=== PATIENT | female | born 1980 | race Hispanic/Latino ===

== ENCOUNTER 2020-10-16 14:10 | Emergency (ER) | payer SELFPAY ==
[~2020-10-16] VITALS: Ht 165.1 cm; Wt 80.3 kg
[~2020-10-16 14:10] MED LIST: AMBIEN5 MG PO; EMBREL; LEVAQUIN500 MG PO; METOCLOPRAMIDE10 MG PO; METOPROLOL TART25 MG PO; NORCO 10-325 T1 EACH PO; PROTONIX40 MG/ML PO; XARELTO20 MG PO; ZOFRAN ODT4 MG PO
[2020-10-16] MEDS ORDERED: BUPIVACAINE HCL 0.5% 10ML MPF VIAL INJ ONE (14:30)
--- NOTE | 2020-10-16 14:47 | Emergency Department Note ---
History of Present Illnes History of Present Illness Chief Complaint: Extremity Trauma/Pain History of Present Illness This is a 40 year old female Chief Complaint Comment Patient in from home with complaints of swelling to the pointer and middle finger on her right hand. 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 Patient reports that she cut a hole in her fingers to try to reduce the swelling. Sensation intact. No acute distress noted. Historian: Patient Arrival Mode: Car Computer Publisher Required: No Onset (how long ago): day(s) Location: R index finger Quality: Swelling Radiation: Reports non-radiation Severity: moderate Onset quality: gradual Duration (how long): day(s) Timing of current episode: constant Progression: worsening Chronicity: new Context: Denies recent illness, Denies recent surgery Relieving factors: none Exacerbating factors: none Associated symptoms: Reports denies other symptoms Treatments prior to arrival: none Past Medical/Family History Physician Review I have reviewed the patient's past medical and family history. Any updates have been documented here. Past Medical History Recent Fever: No Clinical Suspicion of Infectio: No New/Unexplained Change in Ment: No Past Medical History: Anxiety Other Medical History: psoriatic arthritis fibromyalgia Past Surgical History: None Other Surgery: GASTRIC BYPASS 18 YRS AGO UTERINE ABLASION TUMMY TUCK LIPOSUCTION Other Last Tetanus: 2016 Review of Systems Review of Systems Constitutional: Reports no symptoms EENTM: Reports no symptoms Cardiovascular: Reports no symptoms Respiratory: Reports no symptoms Gastrointestinal: Reports no symptoms Genitourinary: Reports no symptoms Musculoskeletal: Reports as per HPI Integumentary: Reports no symptoms Neurological: Reports no symptoms Psychological: Reports no symptoms Endocrine: Reports no symptoms Hematological/Lymphatic: Reports no symptoms Physical Exam Related Data Allergies: Coded Allergies: No Known Allergies (Unverified , 02/03/17) Triage Vital Signs Vital Signs Date Time Temp Pulse Resp B/P (MAP) Pulse Ox O2 Delivery O2 Flow Rate FiO2 10/16/20 14:19 98.7 86 16 127/90 100 Room Air Vital signs reviewed: Yes Physical Exam CONSTITUTIONAL Constitutional: Present well-developed, Present well-nourished HENT HENT: Present normocephalic, Present atraumatic, Present oropharynx clear/moist, Present nose normal HENT L/R: Present left ext ear normal, Present right ext ear normal EYES Eyes: Reports PERRL, Reports conjunctivae normal NECK Neck: Present ROM normal PULMONARY Pulmonary: Present effort normal, Present breath sounds normal CARDIOVASCULAR Cardiovascular: Present regular rhythm, Present heart sounds normal, Present capillary refill normal, Present normal rate GASTROINTESTINAL Abdominal: Present soft, Present nontender, Present bowel sounds normal GENITOURINARY Genitourinary: Present exam deferred SKIN Skin: Present warm, Present dry MUSCULOSKELETAL Musculoskeletal: Present ROM normal, Present other (Swelling to R index DIP consistent with felon) NEUROLOGICAL Neurological: Present alert, Present oriented x 3, Present no gross motor or sensory deficits PSYCHOLOGICAL Psychological: Present mood/affect normal, Present judgement normal Results Imaging Imaging results reviewed: Yes Procedures Incision and Drain Emergent situation: Yes Type of anesthesia: local Risks and benefits discussed: Yes Verbal consent obtained: Yes Consent given by: patient Imaging studies available/revi: yes Required items: not applicable Prepped and draped in sterile: Yes Two patient identifiers confir: name, date of , medical record number Identity confirmed by: patient, ID/arm band Procedure verified: Yes Side verified: yes Site verified: yes Site marked: yes Type: abscess Size: .5cm Site: hand Skin preparation: Chloraprep Anesthesia method: nerve block Patient sedated: No Needle aspiration: No Incision type: single straight Incision depth: dermal Scalpel blade: 11 Wound management: probed and deloculated Drainage: purulent Drainage amount: scant Wound treatment: wound left open Packing used: none Patient tolerance: tolerated well Procedure attestation: I performed the procedure Assessment & Plan Medical Decision Making MDM 40 y.o F presents for R index DIP swelling. Exam consistent with felon. No signs of flexor tenosynovitis, no stranding or FB noted. I&D performed as noted in procedure note. Will Rx bactrim and f/u w/ Dr. Koch in 2 days for wound re- check. Appropriate for DC. Assessment & Plan Final Impression: (1) Felon of finger Depart Disposition: HOME, SELF-CARE Last Vital Signs Date Time Temp Pulse Resp B/P (MAP) Pulse Ox O2 Delivery O2 Flow Rate FiO2 10/16/20 14:19 98.7 86 16 127/90 100 Room Air Home Meds Active Scripts Sulfamethoxazole/Trimethoprim (BACTRIM DS TABLET) 1 Each Tablet, 1 TAB PO BID for 7 Days, #14 TAB 0 Refills Prov:ELVIN ARGUETA MD 10/16/20 Reported Medications Zolpidem Tartrate (AMBIEN) 5 Mg Tablet, 5 MG PO HS PRN for INSOMNIA, #30 TAB 05/01/17 [Embrel] No Conflict Check, WEEKLY 02/03/17 Metoprolol Tartrate (METOPROLOL TARTRATE) 25 Mg Tablet, 25 MG PO Q12H for HEART RATE, TAB 02/03/17 Medications in the ED Bupivacaine HCl UD ONCE ONCE INJ ; Start 10/16/20 at 14:30; Stop 10/16/20 at 14:31; Status UNV ELVIN ARGUETA MD Oct 16, 2020 14:47
--- NOTE | 2020-10-16 14:53 | Diagnostic Imaging Report ---
X-ray right index finger History: Swelling Findings: Mild soft tissue swelling over the dorsum of the proximal interphalangeal joint of the index finger. No fracture, subluxation, radiopaque foreign body, soft tissue gas. Impression: As above. Signed by: Harman Hinton MD on 10/16/2020 2:50 PM
[2020-10-16] MEDS ORDERED: BACTRIM DS TAB1 EACH PO (15:13)
--- OUTSIDE RECORDS SUMMARY | 2020-10-16 15:45 | XMS REPORT | Continuity of Care Document ---
Author Author [facility] t Organization [facility] Address [address] [place] [address] Phone Unavailable Care Team Providers Care Mri Tech Name Role Phone NO, PCP PCP Unavailable Luiz Yañez Attindiana Unavailable Payers Payer Name Policy Type Policy Number Effective Date Expiration Date S Artielle [employer] [facility] Load DynamiX [id number] [facility] Problems Condition Name Condition Details Condition Category Status Onset Date Resolution Date Last Treatment Date Treating Clinician Comments Source Snoring Snoring Disease Active 2018-05-29 00:00:00 [facility] Anemia Anemia Disease Active 2018-05-27 00:00:00 [facility] Neutropenia ( brief mild , ANC 1220, now resolved) Wade tropenia ( brief mild , ANC 1220, now resolved) Disease Active 2018-05-27 00:00:00 [facility] 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) Disease Active 2018-04-06 00:00:00 [facility] Elevated LFTs Elevated LFTs Disease Active 2018-04-06 00:00:00 [facility] Smoking Smoking Disease Active 2018-04-06 00:00:00 [facility] Other insomnia - chocolate Other insomnia - chocolate Disease Active 2015-09-10 00:00:00 [facility] Psoriatic arthritis Psoriatic arthritis Disease Active 2015-09-10 00:00 :00 [facility] Psoriasis Psoriasis Disease Active 2015-09-10 00:00:00 [facility] Obese Obese Disease Active 2014-10-02 00:00:00 [facility] Abdominal pain Abdominal pain Problem Active [facility] Dehydration Dehydration Problem Active [facility] Allergies, Adverse Reactions, Alerts This patient has no known allergies or adverse reactions. Family History Family Member Diagnosis Comments Start Date Stop Date Source Natural father Diabetes [facility] Natural father Hypertension Gareth evans Natural father Lipids Gareth Suresh [facility] Natural mother Diabetes Gareth Suresh [facility] Natural mother Hypert[facility] Natural mother Lipids Gareth Suresh [facility] Social History Social Habit Start Date Stop Date Quantity Comments Source Sex Assigned At [facility] Alcohol intake 2019-05-03 00:00:00 2019-05-03 00:00:00 Current non-drinker of alcohol (finding) [facility] History SDOH Food Worry 2018-04-06 00:00:00 2018-04-06 00:00:00 1 [facility] History SDOH Food Scarcity 2018-04-06 00:00:00 2018-04-06 00:00:00 1 [facility] Tobacco Comment 2018-04-06 00:00:00 2018-04-06 00:00:00 3 cig pe r day for 5 yrs as of 2017 [facility] Smoking Status Start Date Stop Date Source Current every day smoker 2019-05-03 00:00:00 [facility] Medications Ordered Medication Name Filled Medication Name Start Date Stop Da te Current Medication? Ordering Clinician Indication Dosage Frequency Signature (SIG) Comments Components Source cyclobenzaprine (FLEXERIL) 10 mg tablet 2019-01-19 00:00:00 Yes Psoriatic arthritis 10mg Take 1 tablet by aashish th nightly at bedtime as needed for Muscle Spasms Please see MD for future refills . [facility] fluticasone (FLONASE ALLERGY RELIEF) 50 mcg/actuation nasal spray 2019-01-02 00:00:00 Yes Nasal congestion 1{spray} QD Use 1 Rousseau in each nostril daily. [facility] ergocalciferol (VITAMIN D2) 50,000 unit capsule 2018-10-25 0 0:00:00 Yes Vitamin D deficiency 50535W Take 1 capsule by mouth weekly. [facility] methotrexate (RHEUMATREX) 2.5 mg tablet 2018-05-31 00:00:00 Yes Psoriatic arthritis 15mg Take 6 tablets by mouth weekly. [facility] folic acid (FOLVITE) 1 mg tablet 2018-05-31 00:00:00 Yes Psoriatic arthritis 1mg QD Take 1 tablet by mouth daily. [facility] Etanercept (ENBREL SURECLICK) 50 mg/mL (0.98 mL) 2018-05-23 00:00:00 Yes Psoriatic arthritis 50mg Inject 50 mg under the skin weekly. [facility] Etanercept (ENBREL SURECLICK) 50 mg/mL (0.98 mL) 2018-05-16 00:00:00 Yes Psoriatic arthritis 50mg Inject 50 mg under the skin weekly. [facility] clobetasol (TEMOVATE) 0.05 % ointment 2018-05-09 00:00:00 Yes Psoriasis Q.5D Apply to affected area 2 times daily For large body areas of psoriasis. Avoid face, underarms and groin.. [facility] clobetasol (TEMOVATE) 0.05 % external solution 2018-04-26 00 :00:00 Yes Psoriasis Q.5D Apply to affected area 2 times daily. [facility] Levofloxacin (Levaquin) 500 Mg Tablet, 750 Mg Oral Lev ofloxacin (Levaquin) 500 Mg Tablet, 750 Mg Oral 2017-04-02 00:00:00 2017-05-01 00:00:00 No Davonte Fam Np 750 Daily [facility] Metoclopramide Hcl 10 Mg Tablet, 10 Mg Oral Metoclopra mide Hcl 10 Mg Tablet, 10 Mg Oral 2017-04-02 00:00:00 2017-05-01 00:00:00 No Prosper Fam Np 10 Before Meals And At Bedtime [facility] Pantoprazole Sod (Protonix) 40 Mg/Ml Susp, 40 Mg Oral Pantoprazole Sod (Protonix) 40 Mg/Ml Susp, 40 Mg Oral 2017-04-02 00:00:00 2017-05-01 00:00:00 Ellen Fam Np 40 Twice Daily Before Meals [facility] Metoclopramide Hcl 10 Mg Tablet, 10 Mg Oral Metoclopra mide Hcl 10 Mg Tablet, 10 Mg Oral 2017-02-25 00:00:00 2017-03-31 00:00:00 No Shikha Bhandari 10 Before Meals And At Bedtime [facility] Ondansetron (Zofran Odt) 4 Mg Tab.rapdis, 1 Tab Oral O ndansetron (Zofran Odt) 4 Mg Tab.rapdis, 1 Tab Oral 2017-02-04 00:00:00 2017-02-22 00:00:00 No Shikha Bhandari 1 Q4-6H Prn [facility] Embrel Embrel Yes Weekly [facility] Metoprolol Tartrate 25 Mg Tablet Metoprolol Tartrate 25 Mg Tablet Yes 25 Every 12 Hours for Heart Rate [facility] Zolpidem Tartrate (Ambien) 5 Mg Tablet Zolpidem Tartrate (Ambien ) 5 Mg Tablet Yes 5 Bedtime as needed for Insomnia [facility] Rivaroxaban (Xarelto) 20 Mg Tablet, 20 Mg Oral Rivarox aban (Xarelto) 20 Mg Tablet, 20 Mg Oral 2017-03-31 00:00:00 No 20 Bedti me [facility] Hydrocodone Bit/Acetaminophen ([place] 10-325 Tablet) 1 Each Tablet, 1 Mg Oral Hydrocodone Bit/Acetaminophen ([place] 10-325 Tablet) 1 Each Tablet, 1 Mg Oral 2017-02-22 00:00:00 No 1 Every 6 Hours as nee ded for Pain [facility] Procedures This patient has no known procedures. Plan of Care Planned Activity Planned Date Details Comments Source Future Scheduled Test 2018 00:00:00 Breast Cancer Scrn (Yearly) [code = Breast Cancer Scrn (Yearly)] [facility] Scheduled Test 2008 00:00:00 Screening for artemio gnant neoplasm of cervix (procedure) [code = 079925041] [facility] Scheduled Test 2008 00:00:00 Screening for artemio gnant neoplasm of cervix (procedure) [code = 525385748] [facility] Encounters Start Date/Time End Date/Time Encounter Type Admission Type Attendi [facility] Care Department Encounter ID Source 2019-12-26 20:18:00 2019-12-26 23:05:00 Departed Emergency Room [facility] [id number] [facility] 2019-11-12 14:35:00 2019-11-12 14:35:00 Emergency E [id number] 2019-01-02 15:19:06 2019-01-02 15:19:06 Outpatient [facility] [id number] [facility] 2017-12-17 00:00:00 2017-12-17 00:00:00 Outpatient [facility] [id number] [facility] 2017-11-04 00:00:00 2017-11-04 00:00:00 Outpatient [facility] [id number] [facility] Results Test Description Test Time Test Comments Results Result Comments Source FINGER RIGHT 2020-10-16 14:49:00 [facility] 1980 Sex: [place] [address] Patient Name: BATOOL REGALADO MR #: [id number] : 1980 Age/Sex: 40/F Req #: [id number] [facility] Physician: Ordered by: Elvin Yañez MD Report #: [id number] Location: Room/Bed: Procedure: [id number] DX/FINGER RIGHT Exam Date: 10/16/20 Exam Time: 1430 REPORT STATUS: Signed X-ray right index finger History: Swelling Findings: Mild soft tissue swelling over the dorsum of the proximal interphalangeal joint of the index finger. No fracture, subluxation, radiopaque foreign body, soft tissue gas. Impression: As above. Signed by: Hamran Bourgeois MD on 10/16/2020 2:50 PM Dictated By: HARMAN BOURGEOIS MD 49 Transcribed By: MIRI on 10/16/201449 COPY TO: ELVIN YAÑEZ MD Urine WBC 2019-12-26 22:12:00 Test Item Urine WBC (test code = 5821-4) 0-5 0-5 [facility] [id number] 22:12:00* Test Item Value Reference Range Interpretation Comments Urine RBC (test code = 10874-5) NONE 0-5 [facility] HospitalU[facility] [id number] 22:12:00* Test Item Value Reference Range Interpretation Comments Urine Bacteria (test code = 70383-3) NONE NONE [facility] HospitalUrine Epithelial [id number] 22:12:00 * Test Item Value Reference Range Interpretation Comments Urine Epithelial Cells (test code = 28753-8) RARE NONE [facility] [id number] 22:12:00* Test Item Value Reference Range Interpretation Comments Sodium Level (test code = 2951-2) 136 136-145 [facility] HospitalPotassium [id number] 22:12:00* Test Item Value Reference Range Interpretation Comments Potassium Level (test code = 2823-3) 4.1 3.5-5.1 [facility] HospitalChloride [id number] 22:12:00* Test Item Value Reference Range Interpretation Comments Chloride Level (test code = 2075-0) 104 98-107 [facility] HospitalCarbon Dioxide [id number] 22:12:00* Test Item Value Reference Range Interpretation Comments Carbon Dioxide Level (test code = 2028-9) 22 22-29 [facility] HospitalAnion [id number] 22:12:00* Test Item Value Reference Range Interpretation Comments Anion Gap (test code = 33738-9) 14.1 8-16 [facility] HospitalBlood Urea [id number] 22:12:00* Test Item Value Reference Range Interpretation Comments Blood Urea Nitrogen (test code = 3094-0) 7 7-26 [facility] HospitalCreatinine2020-01-28 22:12:00* Test Item Value Reference Range Interpretation Comments Creatinine (test code = 2160-0) 0.58 0.57-1.11 [facility] HospitalBUN/Creatinine Rkfqp1942-63-31 22:12:00* Test Item Value Reference Range Interpretation Comments BUN/Creatinine Ratio (test code = 3097-3) 12 - [facility] HospitalEstimat Glomerular Filtration Rate 2019-12-26 22:12:00* Test Item Value Reference Range Interpretation Comments Estimat Glomerular Filtration Rate (test code = 390281057) > 60 >60 Ranges were taken from the National Kidney Disease Education Program and the [facility] Kidney Foundation literature.Reference ranges:60 or greater: Haulma60-69 ( for 3 consecutive months): Chronic kidney disease 15 or less: Kidney failureHouston Methodist Clear Lake HospitalGlucose Itozf1105-69-51 22:12:00* Test Item Value Reference Range Interpretation Comments Glucose Level (test code = CBU7943) 144 74-118 H [facility] HospitalCalcium Qagof3222-37-17 22:12:00* Test Item Value Reference Range Interpretation Comments Calcium Level (test code = 56957-0) 9.0 8.4-10.2 [facility] HospitalTotal Rsbjphxzz5588-22-03 22:12:00* Test Item Value Reference Range Interpretation Comments Total Bilirubin (test code = 1975-2) 0.3 0.2-1.2 [facility] HospitalAspartate Amino Transf (AST/SGOT) 2019-12-26 22:12:00* Test Item Value Reference Range Interpretation Comments Aspartate Amino Transf (AST/SGOT) (test code = Aspartate Amino Transf (AST/SGOT)) 23 5-34 [facility] HospitalAlanine Aminotransferase (ALT/SGPT) 2019-12-26 22:12:00* Test Item Value Reference Range Interpretation Comments Alanine Aminotransferase (ALT/SGPT) (test code = 1742-6) 18 0-55 [facility] HospitalTotal Icaurcs5556-15-74 22:12:00* Test Item Value Reference Range Interpretation Comments Total Protein (test code = 2885-2) 6.8 6.5-8.1 [facility] HospitalAlbumin2020-01-28 22:12:00* Test Item Value Reference Range Interpretation Comments Albumin (test code = 1751-7) 3.7 3.5-5.0 [facility] HospitalGlobulin2020-01-28 22:12:00* Test Item Value Reference Range Interpretation Comments Globulin (test code = 54010-2) 3.1 2.3-3.5 [facility] HospitalAlbumin/Globulin [id number] 22:12:00 * Test Item Value Reference Range Interpretation Comments Albumin/Globulin Ratio (test code = 1759-0) 1.2 0.8-2.0 [facility] HospitalAlkaline Dsnwjrimujd5703-74-37 22:12:00* Test Item Value Reference Range Interpretation Comments Alkaline Phosphatase (test code = 6768-6) 83 40-150 [facility] HospitalUrine Rzspm4919-78-75 21:59:00* Test Item Value Reference Range Interpretation Comments Urine Color (test code = 5778-6) YELLOW YELLOW [facility] HospitalUrine Kutapjt7148-75-23 21:59:00* Test Item Value Reference Range Interpretation Comments Urine Clarity (test code = 28997-5) CLEAR CLEAR [facility] HospitalUrine Specific [id number] 21:59:00 * Test Item Value Reference Range Interpretation Comments Urine Specific [place] (test code = 5811-5) 1.025 1.010-1.02 5 [facility] HospitalUrine [id number] 21:59:00* Test Item Value Reference Range Interpretation Comments Urine pH (test code = 83482-3) 7.5 5-7 [facility] HospitalUrine Leukocyte Beazenzc6035-92-46 21:59:00* Test Item Value Reference Range Interpretation Comments Urine Leukocyte Esterase (test code = 5799-2) NEGATIVE NEGATIVE [facility] HospitalUrine Llhgatr4038-44-45 21:59:00* Test Item Value Reference Range Interpretation Comments Urine Nitrite (test code = 34121-3) NEGATIVE NEGATIVE [facility] HospitalUrine Asmdqcc7413-15-22 21:59:00* Test Item Value Reference Range Interpretation Comments Urine Protein (test code = 5804-0) NEGATIVE NEGATIVE [facility] HospitalUrine Glucose (UA)2019-12-26 21:59:00* Test Item Value Reference Range Interpretation Comments Urine Glucose (UA) (test code = 2349-9) NEGATIVE NEGATIVE [facility] HospitalUrine [id number] 21:59:00* Test Item Value Reference Range Interpretation Comments Urine Ketones (test code = 97173-0) NEGATIVE NEGATIVE [facility] HospitalUrine Otnxmsulbxpc9848-25-98 21:59:00* Test Item Value Reference Range Interpretation Comments Urine Urobilinogen (test code = 66500-6) 0.2 0.2-1 [facility] HospitalUrine [id number] 21:59:00* Test Item Value Reference Range Interpretation Comments Urine Bilirubin (test code = 1978-6) NEGATIVE NEGATIVE [facility] HospitalUrine Lijfg4528-98-12 21:59:00* Test Item Value Reference Range Interpretation Comments Urine Blood (test code = 56348-4) NEGATIVE NEGATIVE [facility] HospitalUrine [id number] 21:59:00* Test Item Value Reference Range Interpretation Comments Urine Test (test code = 2106-3) NEGATIVE NEGATIVE [facility] HospitalWhite Blood [id number] 21:58:00* Test Item Value Reference Range Interpretation Comments White Blood Count (test code = 6690-2) 8.41 4.8-10.8 [facility] HospitalRed Blood Zxfbf5477-31-27 21:58:00* Test Item Value Reference Range Interpretation Comments Red Blood Count (test code = 789-8) 3.92 3.6-5.1 [facility] HospitalHemoglobin2020-01-28 21:58:00* Test Item Value Reference Range Interpretation Comments Hemoglobin (test code = 64097-9) 11.7 12.0-16.0 L [facility] HospitalHematocrit2020-01-28 21:58:00* Test Item Value Reference Range Interpretation Comments Hematocrit (test code = 4544-3) 35.1 34.2-44.1 [facility] HospitalMean Corpuscular [id number] 21:58:00* Test Item Value Reference Range Interpretation Comments Mean Corpuscular Volume (test code = 787-2) 89.5 81-99 [facility] HospitalMean Corpuscular Tpkoftelme1016-55-83 21:58:00* Test Item Value Reference Range Interpretation Comments Mean Corpuscular Hemoglobin (test code = 785-6) 29.8 28-32 [facility] HospitalMean Corpuscular Hemoglobin Concent 2019-12-26 21:58:00* Test Item Value Reference Range Interpretation Comments Mean Corpuscular Hemoglobin Concent (test code = 786-4) 33.3 31-35 [facility] HospitalRed Cell Distribution Spfsk9458-63-84 21:58:00* Test Item Value Reference Range Interpretation Comments Red Cell Distribution Width (test code = 73198-9) 13.8 11.7 -14.4 [facility] HospitalPlatelet [id number] 21:58:00* Test Item Value Reference Range Interpretation Comments Platelet Count (test code = 777-3) 231 140-360 [facility] HospitalNeutrophils (%) (Auto)2019-12-26 21:58:00 * Test Item Value Reference Range Interpretation Comments Neutrophils (%) (Auto) (test code = 96344-9) 74.8 38.7-80.0 [facility] HospitalLymphocytes (%) (Auto)2019-12-26 21:58:00 * Test Item Value Reference Range Interpretation Comments Lymphocytes (%) (Auto) (test code = 736-9) 19.1 18.0-39.1 [facility] HospitalMonocytes (%) (Auto)2019-12-26 21:58:00* Test Item Value Reference Range Interpretation Comments Monocytes (%) (Auto) (test code = 5905-5) 4.0 4.4-11.3 L [facility] HospitalEosinophils (%) (Auto)2019-12-26 21:58:00 * Test Item Value Reference Range Interpretation Comments Eosinophils (%) (Auto) (test code = 713-8) 1.5 0.0-6.0 [facility] HospitalBasophils (%) (Auto)2019-12-26 21:58:00* Test Item Value Reference Range Interpretation Comments Basophils (%) (Auto) (test code = 706-2) 0.2 0.0-1.0 [facility] HospitalIM GRANULOCYTES %2019-12-26 21:58:00* Test Item Value Reference Range Interpretation Comments IM GRANULOCYTES % (test code = IM GRANULOCYTES %) 0.4 0.0- 1.0 [facility] HospitalNeutrophils # (Auto)2019-12-26 21:58:00* Test Item Value Reference Range Interpretation Comments Neutrophils # (Auto) (test code = 751-8) 6.3 2.1-6.9 [facility] HospitalLymphocytes # (Auto)2019-12-26 21:58:00* Test Item Value Reference Range Interpretation Comments Lymphocytes # (Auto) (test code = 73314-2) 1.6 1.0-3.2 [facility] HospitalMonocytes # (Auto)2019-12-26 21:58:00* Test Item Value Reference Range Interpretation Comments Monocytes # (Auto) (test code = 742-7) 0.3 0.2-0.8 [facility] HospitalEosinophils # (Auto)2019-12-26 21:58:00* Test Item Value Reference Range Interpretation Comments Eosinophils # (Auto) (test code = 711-2) 0.1 0.0-0.4 [facility] HospitalBasophils # (Auto)2019-12-26 21:58:00* Test Item Value Reference Range Interpretation Comments Basophils # (Auto) (test code = 704-7) 0.0 0.0-0.1 [facility] HospitalAbsolute Immature Granulocyte (auto 2019-12-26 21:58:00* Test Item Value Reference Range Interpretation Comments Absolute Immature Granulocyte (auto (brook t code = Absolute Immature Granulocyte (auto) 0.03 0-0.1 [facility]
--- OUTSIDE RECORDS SUMMARY | 2020-10-16 15:45 | XMS REPORT | Clinical Summary ---
Author Author [facility] ict Organization [facility] ict Address Unknown Phone Unavailable Care Team Providers Care Med Aide Name Role Phone Chetan Valiente MD PCP Pcp, No PCP Unavailable Allergies No Known Allergies Medications End Date Status Medication Sig Dispensed Refills Start Date Active clobetasol (TEMOVATE) Apply to 50 mL 10 03/30 0.05 % external affected area 8 solutionIndications: 2 times Psoriasis daily. Active clobetasol (TEMOVATE) Apply to 60 g 04/29 0.05 % affected area 8 ointmentIndications: 2 times daily Psoriasis For large body areas of psoriasis. Avoid face, underarms and groin.. Active Etanercept (ENBREL Inject 50 mg 3.92 mL 0 SURECLICK) 50 mg/mL (0.98 under the 8 mL)Indications: skin weekly. Psoriasis, Psoriatic arthritis Active Etanercept (ENBREL Inject 50 mg 3.92 mL 11 SURECLICK) 50 mg/mL (0.98 under the 8 mL)Indications: skin weekly. Psoriasis, Psoriatic arthritis Active methotrexate (RHEUMATREX) Take 6 24 tablet 5 2.5 mg tabletIndications: tablets by 8 Psoriatic arthritis mouth weekly. Active folic acid (FOLVITE) 1 mg Take 1 tablet 90 tablet 3 tabletIndications: by mouth 8 Psoriatic arthritis daily. Active ergocalciferol (VITAMIN Take 1 12 capsule 0 D2) 50,000 unit capsule by 8 capsuleIndications: mouth weekly. Vitamin D deficiency Active fluticasone (FLONASE Use 1 [place] 16 g 0 01/02 ALLERGY RELIEF) 50 in each 9 mcg/actuation nasal nostril sprayIndications: Nasal daily. congestion Active cyclobenzaprine Take 1 tablet 30 tablet 1 01/19/20 1 (FLEXERIL) 10 mg by mouth 9 tabletIndications: nightly at Psoriatic arthritis bedtime as needed for Muscle Spasms Please see MD for future refills . Active Problems Problem Noted Date Snoring 05/29/2018 Anemia 05/27/2018 Neutropenia ( brief mild , ANC 1220, now resolved) 0 05/27/2018 HLA B27 (HLA B27 positive) 04/06/2018 Elevated LFTs 04/06/2018 Smoking 04/06/2018 Other insomnia - chocolate 09/10/2015 Psoriatic arthritis 09/10/2015 Psoriasis 09/10/2015 Obese 10/02/2014 Family History Medical History Relation Name Comments Diabetes Father Hypertension Father Lipids Father Diabetes Mother Hypertension Mother Lipids Mother Relation Name Status Comments Father Mother Social History Date Tobacco Use Types Packs/Day Years Used Current Every Day Smoker Smokeless Tobacco: Never Used Tobacco Cessation: Ready to Quit: No; Co unseling Given: Yes Comments: 3 cig per day for 5 yrs as of 2017 Drinks/Week oz/Week Comments Alcohol Use 0 Standard drinks or equivalent 0.0 No Food Insecurity Answer Date Recorded Within the past 12 months, you worried that your Never giselle e 04/06/2018 food would run out before you got money to buy more. Within the past 12 months, the food you bought Never true 04/06/2018 just didn't last and you didn't have mo nina to get more. Sex Assigned at Date Recorded Not on file Industry Job Start Date Occupation Not on file Not on file Not on file Travel End Travel History Travel Start No recent travel history available. Last Filed Vital Signs Not on file Plan of Treatment Health Maintenance Due Date Last Done Comments HPV Cervical Cancer Scrn 2008 Pap Cervical Cancer Scrn 2008 Breast Cancer Scrn 2018 (Yearly) Results Not on fileafter 10/16/2019
== END 2020-10-16 15:55 | disposition home or self-care (01) ==
LOC: ER 14:26
DX: L03.011 Cellulitis of right finger (principal); Z98.84 Bariatric surgery status; F41.9 Anxiety disorder, unspecified; L40.50 Arthropathic psoriasis, unspecified
CPT/HCPCS: 99283

== ENCOUNTER 2020-11-06 01:01 | Emergency (ER) | payer SELFPAY ==
[~2020-11-06] VITALS: Ht 165.1 cm; Wt 80.3 kg
[~2020-11-06 01:01] MED LIST changes: +BACTRIM DS TAB1 EACH PO
[2020-11-06] MEDS ORDERED: HYDROCODONE/APAP 7.5MG-325MG 1 EA TAB PO ONE (01:45)
[2020-11-06] MEDS ORDERED: KETOROLAC TROMETHAMINE 60 MG/2 ML VIAL IM ONE (02:45)
[2020-11-06 04:35] VITALS: BP 120/83
[2020-11-06] MEDS ORDERED: TYLENOL # 31 EA PO (04:40)
== END 2020-11-06 05:11 | disposition home or self-care (01) ==
LOC: ER 01:08
DX: L30.8 Other specified dermatitis (principal); L40.50 Arthropathic psoriasis, unspecified; I10 Essential (primary) hypertension; F41.9 Anxiety disorder, unspecified; Z98.84 Bariatric surgery status
CPT/HCPCS: 73130; 99283; J1885